=== PATIENT | male | born 1935 | race Caucasian/White ===

== ENCOUNTER 2024-01-13 08:41 | Day surgery (SDC) | payer MEDICARE, BC ==
[~2024-01-13 08:41] MED LIST: Sodium Chloride 0.9% 10 ML Syringe FLUSH PRN; Sodium Chloride 0.9% 10 ML Syringe FLUSH SCH
[2024-01-13] MEDS: Lactated Ringers 1,000 ML IV SCH (09:51)
[2024-01-13 09:58] LABS: INR 1.09; PROTHROMBIN TIME 11.5 SECONDS (9.7-12.0)
[2024-01-13 09:59] LABS: PTT,PARTIAL THROMBOPLSTIN TIME 29.1 SECONDS (21.7-31.4)
[2024-01-13] MEDS ORDERED: Propofol 200 MG/20 ML SDV ONE (10:12)
[2024-01-13] MEDS ORDERED: Ondansetron 4 MG/2 ML SDV ONE ×2 (10:12→10:13)
[2024-01-13] MEDS ORDERED: ePHEDrine 50 MG/ML SDV ONE (10:15)
[2024-01-13] MEDS ORDERED: ceFAZolin 2 GM Vial ONE (10:15)
[2024-01-13] MEDS: Vancomycin 1 GM SDV ONE (11:29)
[2024-01-13] MEDS: Morphine 8 MG, EPINEPHrine 0.3 MG, Cefuroxime 750 MG, Ketorolac 30 MG, Sodium Chloride ... PRN (11:29)
[2024-01-13] MEDS: Tranexamic Acid 1,000 MG/10 ML Vial ONE (11:29)
[2024-01-13] MEDS ORDERED: fentaNYL 100 MCG/2 ML SDV ONE (11:35)
[2024-01-13] MEDS ORDERED: fentaNYL 100 MCG/2 ML SDV IVPUSH PRN (12:09)
[2024-01-13] MEDS ORDERED: Ondansetron 4 MG/2 ML SDV IVPUSH PRN (12:09)
[2024-01-13] MEDS ORDERED: HYDROmorphone 0.5 MG/0.5 ML Syringe IVPUSH PRN (12:09)
[2024-01-13] MEDS: Acetaminophen/HYDROcodone 325-5 MG Tab PO PRN (14:20)
[2024-01-13 16:12] VITALS: BP 124/77; PULSE 55
== END 2024-01-13 16:05 | disposition home or self-care (01) ==
LOC: JD.SDS 08:41
PROVIDERS: ATTEND Orthopaedic Surgery
DX: M16.12 Unilateral primary osteoarthritis, left hip (principal); I10 Essential (primary) hypertension; C91.10 Chronic lymphocytic leukemia of B-cell type not having achieved remission; G25.0 Essential tremor; Z79.01 Long term (current) use of anticoagulants; Z79.899 Other long term (current) drug therapy
CPT/HCPCS: 0055T; 27130; 36415; 73501; 85610; 85730; 86850; 86900; 86901; 97110; 97161; A9270; C1713; C1776; J0171; J0690; J0697; J1885; J2270; J2405; J2704; J3010; J3370; J7120; 01214; 99100; J3490

== ENCOUNTER 2024-01-22 17:38 | Emergency (ER) | payer MEDICARE, BC ==
[2024-01-22 18:06] LABS: BASOPHILS PERCENT AUTO 0.2 % (0.0-1.0); EOSINOPHILS ABSOLUTE AUTO 0.1 K/mm3 (0.0-0.4); EOSINOPHILS PERCENT AUTO 0.4 % (0.0-6.0); HEMATOCRIT 33.6 % (42.0-52.0); HEMOGLOBIN 11.2 gm/dl (14.0-18.0); IMMATURE GRAN ABSOLUTE AUTO 0.09 K/mm3 (0.00-0.05); IMMATURE GRAN PERCENT AUTO 0.4 % (0.0-0.4); LYMPHOCYTES ABSOLUTE AUTO 18.8 K/mm3 (1.0-4.8); LYMPHOCYTES PERCENT AUTO 82.2 % (24.0-44.0); MEAN CORPUSCULAR HEMOGLOBIN 32.8 pg (28.0-32.0); MEAN CORPUSCULAR HGB CONC 33.3 g/dl (32.0-36.0); MEAN CORPUSCULAR VOLUME 98.5 fl (83.0-99.0); MEAN PLATELET VOLUME 8.6 fl (9.4-12.4); MONOCYTES ABSOLUTE AUTO 0.1 K/mm3 (0.0-0.8); MONOCYTES PERCENT AUTO 0.6 % (0.0-8.0); NEUTROPHILS ABSOLUTE AUTO 3.7 K/mm3 (1.8-7.7); NEUTROPHILS PERCENT AUTO 16.2 % (41.0-71.0); PLATELET COUNT,PLT 285 K/mm3 (150-400); RED BLOOD CELL COUNT 3.41 M/mm3 (4.52-5.90); WHITE BLOOD CELL COUNT,WBC 22.87 K/mm3 (3.9-11.3)
[2024-01-22 18:19] LABS: INR 2.52; PROTHROMBIN TIME 25.1 SECONDS (9.7-12.0)
[2024-01-22 18:20] LABS: PTT,PARTIAL THROMBOPLSTIN TIME 38.4 SECONDS (21.7-31.4)
[2024-01-22 18:32] LABS: A/G RATIO 0.8 (1-2); ALBUMIN 2.6 g/dl (3.4-5.0); ANION GAP 16.9 (5-15); BILIRUBIN TOTAL 0.5 mg/dL (0.2-1.0); BUN/CREATININE RATIO 27.1 (14-18); CALCIUM 8.6 mg/dL (8.5-10.1); CREATININE 1.4 mg/dL (0.7-1.3); EST CRCL DRUG DOSING (CG) 35.57 mL/min; POTASSIUM,K 3.9 mEq/L (3.5-5.1); PROTEIN TOTAL,TP 5.8 g/dl (6.4-8.2)
[2024-01-22 18:40] LABS: SLIDE REVIEW ABNORMAL SMEAR
[2024-01-22 19:02] LABS: LACTIC ACID 1.7 mmol/L (0.4-2.0)
[2024-01-22] MEDS ORDERED: Sodium Chloride 0.9% 100 ML IV SCH (19:15)
[2024-01-22] MEDS: Iopamidol 755 Mg/ML 100 ML Bottle IVPUSH ONE (19:18)
[2024-01-22] MEDS: Alum Hydrox/Mag Hydrox/Simeth 30 ML, Lidocaine 2% 15 ML PO ONE (20:01)
[2024-01-22] MEDS: Sodium Chloride 0.9% 1,000 ML ONE (20:11)
[2024-01-22] MEDS: cefTRIAXone 2 GM in Sodium Chloride 0.9% 100 ML IV ONE (22:12)
[2024-01-22 22:53] VITALS: BP 107/58; PULSE 75
== END 2024-01-22 22:51 ==
LOC: JD.ED 17:38
DX: R07.89 Other chest pain (principal); R79.1 Abnormal coagulation profile
CPT/HCPCS: 36415; 71045; 71045-26; 71275; 71275-26; 80053; 83605; 83735; 83880; 84484; 85025; 85379; 85610; 85730; 93005; 93010; 96365; 99285; 99285-25; A9270-GY; J0696; J3490; J7030; Q9967